=== PATIENT | female | born 1960 | race Caucasian/White ===

== ENCOUNTER 2016-11-14 06:00 | Day surgery (SDC) | payer BC ==
--- NOTE | ~2016-11-14 | EGD ---
EGD REPORT [facility] [address] [address] NAME: KYRA FORREST : [birth year] STATUS : REG [facility]#: [id number] AGE: 55 ADM/REG DATE : 11/14/16 MR#: [id number] REPORT SERV DATE: 11/14/16 DICTATED BY: VALENCIA NEVAREZ DATE: 11/14/16 REPORT STATUS : Draft [facility]ANS[facility]IB[facility] BY: [facility] DATE: 11/14/16 [facility] Patient Name: Kyra Forrest Date of : 1960 Attending MD: VALENCIA NEVAREZ MD Procedure Date No Time: 11/14/2016 Procedure: Upper GI endoscopy Indications: Screening procedure Referring MD: MELANI MURILLO MD, JANEL LIU Medicines: Monitored Anesthesia Care Complications: No immediate complications. Procedure: Pre-Anesthesia Assessment: - ASA Grade Assessment: III - A patient with severe systemic disease. After obtaining informed consent, the endoscope was passed under direct vision. Throughout the procedure, the patient's blood pressure, pulse, and oxygen saturations were monitored continuously. The GIF [id number] was introduced through the mouth, and advanced to the second part of duodenum. The upper GI endoscopy was accomplished without difficulty. The patient tolerated the procedure well. Findings: Grade II varices were found in the lower third of the esophagus. Three columns of varices each . Insufflation does not totally eliminate the varices. Estimated blood loss: none. Moderate portal hypertensive gastropathy was found in the gastric fundus and in the gastric body. Varices were found in the gastric fundus. They were small in largest diameter. Patchy mild inflammation characterized by erythema was found in the gastric antrum. Biopsies were taken with a cold forceps for histology. A few erosions without bleeding were found in the duodenal bulb. The cardia and gastric fundus were normal on retroflexion. Impression: - Grade II esophageal varices. - Portal hypertensive gastropathy. - Gastric varices. - Gastritis. Biopsied. - Duodenal erosions without bleeding. Recommendation: - Patient has a contact number available for emergencies. The signs and symptoms of potential delayed complications were discussed with the patient. Return to EGD REPORT [address] [address] NAME: KYRA FORREST : [birth year] STATUS : REG [facility] PAT#: [id number] AGE: 55 ADM/REG DATE : 11/14/16 MR#: [id number] REPORT SERV DATE: 11/14/16 DICTATED BY: VALENCIA NEVAREZ DATE: 11/14/16 REPORT STATUS : Draft TRANSCRIBED BY: [employer] DATE: 11/14/16 normal activities tomorrow. Written discharge instructions were provided to the patient. - Regular diet. - Continue present medications. - Use Prilosec (omeprazole) 20 mg PO daily for 2 months. - Repeat the upper endoscopy in 1.5 years for surveillance. - may consider nitrates per Dr. Liu if she cannot take Beta naomy. Procedure Code(s): --- Professional --- 27419, Esophagogastroduodenoscopy, flexible, transoral; with biopsy, single or multiple Diagnosis Code(s): --- Professional --- I85.00, Esophageal varices without bleeding K76.6, Portal hypertension K31.89, Other diseases of stomach and duodenum I86.4, Gastric varices K29.70, Gastritis, unspecified, without bleeding K26.9, Duodenal ulcer, unspecified as acute or chronic, without hemorrhage or perforation Z13.810, Encounter for screening for upper gastrointestinal disorder CPT copyright 2013 [employer]. All rights reserved. The codes documented in this report are preliminary and upon shop clerk review may be revised to meet current compliance requirements. VALENCIA NEVAREZ MD 11/14/2016 7:48 AM This report has been signed electronically. Number of Addenda: 0 Note Initiated On: 11/14/2016 7:27 AM Scope Withdrawal Time 0 hours 0 minutes 0 seconds [address] [id number]
[~2016-11-14 06:00] MED LIST: AMBIEN CR12.5 MG PO; CELEXA20 PO; CHANTIX1 PO; CO Q-1050 MG PO; COQ10100 MG OR; NEUR100 PO; POTASSIUM OTC; PRAVAC PO; TYLENOL PM PO; VITAMIN D400 UNI1 PO; VITAMINS/SUPPLEMENTS; [UNRECOGNIZED DRUG - OTHER] PO
== END 2016-11-14 23:59 | disposition home health service (06) ==
LOC: DMU 06:00
PROVIDERS: Internal Medicine Gastroenterology
PROC: 0DB68ZX Excision of Stomach, Via Natural or Artificial Opening Endoscopic, Diagnostic (ICD-10-PCS; principal; 2016-11-14 07:30)
DX: Z13.810 Encounter for screening for upper gastrointestinal disorder (principal); K26.9 Duodenal ulcer, unspecified as acute or chronic, without hemorrhage or perforation; K76.6 Portal hypertension; I85.00 Esophageal varices without bleeding; I86.4 Gastric varices; J44.9 Chronic obstructive pulmonary disease, unspecified; D69.6 Thrombocytopenia, unspecified; E78.00 Pure hypercholesterolemia, unspecified; K74.60 Unspecified cirrhosis of liver; G62.9 Polyneuropathy, unspecified; F32.9 Major depressive disorder, single episode, unspecified; Z88.8 Allergy status to other drugs, medicaments and biological substances; Z79.899 Other long term (current) drug therapy; F17.210 Nicotine dependence, cigarettes, uncomplicated; M19.90 Unspecified osteoarthritis, unspecified site; Z90.49 Acquired absence of other specified parts of digestive tract; Z90.710 Acquired absence of both cervix and uterus; Z98.890 Other specified postprocedural states; Z86.010 Personal history of colon polyps; Z98.51 Tubal ligation status
CPT/HCPCS: 88305